=== PATIENT | female | born 1950 | race African-American/Black ===

== ENCOUNTER 2019-03-14 18:21 | Emergency (ER) | payer MEDICARE ==
[~2019-03-14] VITALS: Ht 175.3 cm; Wt 100.0 kg
[2019-03-14] MEDS ORDERED: SODIUM CHLORIDE 0.9% 1,000 ML IV SCH (22:07)
[2019-03-14] MEDS ORDERED: HYDRALAZINE 20MG/ML VIAL IV ONE (22:15)
[2019-03-14] MEDS ORDERED: DIPHENHYDRAMINE 50MG/ML VIAL IV ONE (22:15)
[2019-03-14] MEDS ORDERED: FAMOTIDINE 20MG/2ML VIAL IV ONE (22:15)
[2019-03-14] MEDS ORDERED: DEXAMETHASONE 10 MG/ML VIAL IV ONE (22:15)
[2019-03-14 23:32] LABS: EOSINOPHILS % 2.1 % (0.0-5.0); HEMATOCRIT. 45.5 % (36.0-48.0); HEMOGLOBIN. 14.6 g/dL (12.0-16.0); LYMPHOCYTES % 41.4 % (20.0-50.0); MEAN PLATELET VOLUME 8.6 fl (7.4-10.4); MONOCYTES % 6.6 % (2.0-8.0); NEUTROPHILS % 48.9 % (40.0-76.0); PLATELET 310 x1000/uL (130-400); RED BLOOD CELL COUNT 5.62 mill/uL (4.2-5.4); RED CELL DISTRIBUTION WIDTH 15.9 % (11.6-14.6)
[2019-03-14 23:39] LABS: CHLORIDE 103 mEq/L (98-107)
[2019-03-15 04:14] VITALS: BP 150/77
== END 2019-03-15 04:43 | disposition home or self-care (01) ==
LOC: ER 18:21
DX: H10.13 Acute atopic conjunctivitis, bilateral (principal); H57.13 Ocular pain, bilateral; I10 Essential (primary) hypertension
CPT/HCPCS: 36415; 80053; 85025; 96374; 96375; 99283; J0360; J1100; J1200; J3490

== ENCOUNTER 2019-08-31 13:30 | Emergency (ER) | payer MEDICARE ==
[~2019-08-31] VITALS: Ht 175.3 cm; Wt 96.0 kg
[2019-08-31] MEDS ORDERED: ACETAMINOPHEN 500MG TABLET PO ONE (14:45)
[2019-08-31] MEDS ORDERED: PREDNISONE 20MG TABLET PO ONE (14:45)
[2019-08-31] MEDS: LORATADINE 10MG TABLET PO SCH (15:22)
[2019-08-31 15:23] VITALS: BP 162/102
== END 2019-08-31 15:25 | disposition home or self-care (01) ==
LOC: ER 13:30
DX: T78.1XXA Other adverse food reactions, not elsewhere classified, initial encounter (principal); H57.89 Other specified disorders of eye and adnexa; X58.XXXA Exposure to other specified factors, initial encounter; Z91.018 Allergy to other foods
CPT/HCPCS: 99284; J7512

== ENCOUNTER 2020-02-01 10:40 | Emergency (ER) | payer OTHER, MEDICARE ==
[~2020-02-01] VITALS: Ht 170.2 cm; Wt 88.4 kg
[2020-02-01 10:43] VITALS: BP 174/87
[2020-02-01] MEDS ORDERED: FLUORESCEIN SODIUM 1MG/STRIP BOTHEYE ONE (11:45)
[2020-02-01] MEDS ORDERED: SODIUM CHLORIDE 0.9% 1,000 ML IV ONE (11:45)
[2020-02-01] MEDS ORDERED: AMPICILLIN SOD/SULBACTAM NA 3 G in SODIUM CHLORIDE 0.9% 100 ML IV SCH (11:45)
[2020-02-01] MEDS ORDERED: TETRACAINE 0.5% OPHTH DROPS 4ML BOTHEYE ONE (11:45)
[2020-02-01 12:36] LABS: BASOPHILS % 0.8 % (0.0-2.0); EOSINOPHILS % 2.3 % (0.0-5.0); HEMATOCRIT. 43.8 % (36.0-48.0); HEMOGLOBIN. 14.2 g/dL (12.0-16.0); LYMPHOCYTES % 42.8 % (20.0-50.0); MEAN CORPUSCULAR HEMOGLOBIN 26.2 pg (28.0-32.0); MEAN CORPUSCULAR VOLUME 80.9 fL (81.0-99.0); MEAN PLATELET VOLUME 9.2 fl (7.4-10.4); MONOCYTES % 7.9 % (2.0-8.0); NEUTROPHILS % 46.2 % (40.0-76.0); PLATELET 250 x1000/uL (130-400); RED BLOOD CELL COUNT 5.42 mill/uL (4.2-5.4); RED CELL DISTRIBUTION WIDTH 15.5 % (11.6-14.6)
[2020-02-01 12:45] LABS: CHLORIDE 107 mEq/L (98-107)
[2020-02-01] MEDS ORDERED: IOHEXOL-300 100 ML BOTTLE ONE (15:17)
== END 2020-02-01 15:42 | disposition home or self-care (01) ==
LOC: ER 10:40
DX: L03.213 Periorbital cellulitis (principal); I10 Essential (primary) hypertension; Z91.018 Allergy to other foods
CPT/HCPCS: 36415; 70487; 80053; 85025; 96365; 99285; J0295; J7030; J7050; Q9967

== ENCOUNTER 2021-08-10 06:58 | Emergency (ER) | payer OTHER, MEDICAID ==
[~2021-08-10] VITALS: Ht 170.2 cm; Wt 89.0 kg
[2021-08-10] MEDS ORDERED: ONDANSETRON HCL 4MG TABLET PO ONE (07:30)
[2021-08-10 08:14] VITALS: BP 154/95
[2021-08-10] MEDS ORDERED: FAMOTIDINE 20MG/2ML VIAL IV ONE (08:45)
[2021-08-10] MEDS ORDERED: DIPHENHYDRAMINE 50MG/ML VIAL IV ONE (08:45)
[2021-08-10] MEDS ORDERED: METHYLPREDNISOLONE SOD SUCC 125 MG/2 ML VIAL IV ONE (08:45)
[2021-08-10 09:25] LABS: CLARITY URINE CLEAR (CLEAR); COLOR URINE YELLOW (YELLOW); KETONES URINE TRACE (NEGATIVE); LEUKOCYTE ESTERASE URINE NEGATIVE (NEGATIVE); NITRITE URINE NEGATIVE (NEGATIVE); OCCULT BLOOD URINE NEGATIVE (NEGATIVE); PH URINE 5.5 (4.5-8.0); PROTEIN URINE NEGATIVE (NEGATIVE)
[2021-08-10 09:42] LABS: EOSINOPHILS % 2.3 % (0.0-5.0); HEMATOCRIT. 39.7 % (36.0-48.0); HEMOGLOBIN. 13.1 g/dL (12.0-16.0); LYMPHOCYTES % 33.6 % (20.0-50.0); MEAN CORPUSCULAR HEMOGLOBIN 26.5 pg (28.0-32.0); MEAN CORPUSCULAR VOLUME 80.5 fL (81.0-99.0); MEAN PLATELET VOLUME 8.5 fl (7.4-10.4); NEUTROPHILS % 55.1 % (40.0-76.0); PLATELET 451 x1000/uL (130-400); RED BLOOD CELL COUNT 4.93 mill/uL (4.2-5.4); RED CELL DISTRIBUTION WIDTH 14.5 % (11.6-14.6)
[2021-08-10 09:49] LABS: CHLORIDE 105 mEq/L (98-107)
[2021-08-10] MEDS ORDERED: ONDANSETRON HCL 4MG TABLET PO NR (10:30)
[2021-08-10] MEDS ORDERED: P50 PO (11:12)
[2021-08-10] MEDS ORDERED: DIPH25CA83 PO (11:12)
== END 2021-08-10 12:09 | disposition home or self-care (01) ==
LOC: ER 07:17
DX: T78.40XA Allergy, unspecified, initial encounter (principal); I10 Essential (primary) hypertension; X58.XXXA Exposure to other specified factors, initial encounter
CPT/HCPCS: 36415; 80053; 81003; 83690; 85025; 96374; 96375; 99284; J1200; J2930; J3490; Q0162

== ENCOUNTER 2022-11-19 16:39 | Emergency (ER) | payer OTHER, MEDICAID ==
[~2022-11-19] VITALS: Ht 175.3 cm; Wt 81.6 kg
[~2022-11-19 16:39] MED LIST: ATOR20TA PO; DIPH25CA83 PO; DOCU250C14 PO; P50 PO; vit d3 PO
[2022-11-19 16:55] VITALS: BP 153/103; PULSE 65; RESP 18; TEMP 98.3; O2SAT 100
[2022-11-19] MEDS ORDERED: PREDNISONE 10MG TABLET PO ONE (20:15)
[2022-11-19] MEDS ORDERED: AMOX1TAB16 MT (21:38)
== END 2022-11-19 21:44 | disposition home or self-care (01) ==
LOC: ER 16:39
DX: L03.213 Periorbital cellulitis (principal); I10 Essential (primary) hypertension; Z90.49 Acquired absence of other specified parts of digestive tract
CPT/HCPCS: 99283; J7512

== ENCOUNTER 2023-02-24 13:06 | Emergency (ER) | payer OTHER, MEDICAID ==
[~2023-02-24] VITALS: Ht 175.3 cm; Wt 90.0 kg
[~2023-02-24 13:06] MED LIST changes: +AMOX1TAB16 MT
[2023-02-24 13:14] VITALS: BP 160/82; O2SAT 99
[2023-02-24] MEDS ORDERED: FAMOTIDINE 20MG TABLET PO STA (13:55)
[2023-02-24] MEDS ORDERED: PREDNISONE 20MG TABLET PO ONE (14:00)
[2023-02-24] MEDS ORDERED: DIPHENHYDRAMINE 50MG CAPSULE PO ONE (14:00)
[2023-02-24] MEDS ORDERED: DIPHENHYDRAMINE 25MG CAPSULE PO NR (16:25)
[2023-02-24] MEDS ORDERED: FAMOTIDINE 20MG TABLET PO NR (16:26)
[2023-02-24] MEDS ORDERED: PREDNISONE 20MG TABLET PO NR (16:27)
[2023-02-24] MEDS ORDERED: P20 MT (16:32)
[2023-02-24] MEDS ORDERED: FAMO-135 MT (16:32)
[2023-02-24] MEDS ORDERED: DIPH25CA83 MT (16:32)
[2023-02-24] MEDS ORDERED: AMOX1TAB16 MT (16:46)
[2023-02-24 17:12] VITALS: PULSE 72; RESP 16; TEMP 98.9
== END 2023-02-24 17:12 | disposition home or self-care (01) ==
LOC: ER 14:08
DX: H10.13 Acute atopic conjunctivitis, bilateral (principal); E78.00 Pure hypercholesterolemia, unspecified; I10 Essential (primary) hypertension; K59.00 Constipation, unspecified; Z90.49 Acquired absence of other specified parts of digestive tract; Z79.899 Other long term (current) drug therapy
CPT/HCPCS: 99284; J7512; Q0163

== ENCOUNTER 2023-07-12 13:15 | Emergency (ER) | payer OTHER, MEDICAID ==
[~2023-07-12] VITALS: Ht 175.3 cm; Wt 95.0 kg
[~2023-07-12 13:15] MED LIST changes: +DIPH25CA83 MT; +FAMO-135 MT; +P20 MT
[2023-07-12 13:32] VITALS: O2SAT 97
[2023-07-12] MEDS ORDERED: DIPHENHYDRAMINE 50MG CAPSULE PO ONE (15:30)
[2023-07-12] MEDS ORDERED: P20 MT (16:16)
[2023-07-12] MEDS ORDERED: LORA10TA7 MT (16:16)
[2023-07-12] MEDS ORDERED: DIPH25CA83 MT (16:16)
[2023-07-12] MEDS: LORATADINE 10MG TABLET PO SCH (17:07)
[2023-07-12] MEDS: FAMOTIDINE 20MG TABLET PO SCH (17:07)
[2023-07-12] MEDS: PREDNISONE 20MG TABLET PO ONE (17:07)
[2023-07-12 17:15] VITALS: BP 151/85; PULSE 90; RESP 19; TEMP 98
[2023-07-12] MEDS ORDERED: AMOX1TAB16 MT (17:29)
[2023-07-12] MEDS ORDERED: FAMOTIDINE 20MG TABLET PO SCH (21:00)
== END 2023-07-12 18:02 | disposition home or self-care (01) ==
LOC: ER 14:30
DX: H05.223 Edema of bilateral orbit (principal); E78.00 Pure hypercholesterolemia, unspecified; I10 Essential (primary) hypertension; Z90.49 Acquired absence of other specified parts of digestive tract
CPT/HCPCS: 99284; Q0163; J7512

== ENCOUNTER 2024-05-14 21:00 | Emergency (ER) | payer MEDICARE, MEDICAID ==
[~2024-05-14] VITALS: Ht 175.3 cm; Wt 85.0 kg
[~2024-05-14 21:00] MED LIST changes: +LORA10TA7 MT
[2024-05-14 21:21] VITALS: TEMP 36.9; O2SAT 97
[2024-05-14 21:24] VITALS: O2SAT 100
[2024-05-14 22:51] VITALS: BP 137/71; PULSE 106; RESP 18
[2024-05-14] MEDS: IBUPROFEN 800MG TABLET PO ONE (22:51)
[2024-05-14] MEDS: IBUPROFEN 800MG TABLET PO NR (23:07)
[2024-05-14] MEDS ORDERED: IBUP-2029 MT (23:23)
== END 2024-05-14 23:38 | disposition home or self-care (01) ==
LOC: ER 21:00
DX: S90.32XA Contusion of left foot, initial encounter (principal); S90.02XA Contusion of left ankle, initial encounter; Z79.52 Long term (current) use of systemic steroids; Z79.899 Other long term (current) drug therapy; E78.00 Pure hypercholesterolemia, unspecified; I10 Essential (primary) hypertension; Z90.49 Acquired absence of other specified parts of digestive tract; W22.8XXA Striking against or struck by other objects, initial encounter; Y93.89 Activity, other specified; Y92.89 Other specified places as the place of occurrence of the external cause; Y99.8 Other external cause status
CPT/HCPCS: 29515; 73610; 73630; 99284